=== PATIENT | female | born 1985 | race Caucasian/White ===

== ENCOUNTER 2017-02-24 00:06 | Inpatient (IN) ==
[2017-02-24] MEDS ORDERED: IOPAMIDOL 100 ML BOTTLE IV ONE (00:07)
[2017-02-24] MEDS ORDERED: ACETAMINOPHEN 325 MG TABLET PO PRN ×3 (01:02→04:08)
[2017-02-24] MEDS ORDERED: NITROFURANTOIN SR 100 MG CAPSULE PO ONE (01:02)
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
[2017-02-24 01:54] LABS: Basophils # (Auto) 0 K/mcL (0.0-0.3); Basophils % (Auto) 0.1 % (0.0-2.0); Eosinophils # (Auto) 0.1 K/mcL (0.0-0.7); Eosinophils % (Auto) 0.6 % (0.0-7.0); Granulocytes % (Auto) 79.6 % (38.0-78.0); Lymphocytes # (Auto) 1.2 K/mcL (1.5-4.8); Lymphocytes % (Auto) 10.7 % (15.5-49.0); Mean Corpuscular HGB Conc 33.9 g/dL (31.0-36.0); Mean Corpuscular Hemoglobin 34.3 pg (26.0-34.0); Monocytes # (Auto) 1.1 K/mcL (0.1-0.9); Platelet Count 209 K/mcL (140-440); RBC 3.83 M/mcL (4.00-5.20)
[2017-02-24 02:17] LABS: ALT/SGPT 22 U/l (0-40); Albumin 3.4 gm/dL (3.2-5.2); Albumin/Globulin Ratio 1.3 (1.0-2.3); Alkaline Phosphatase 93 U/L (39-117); Blood Urea Nitrogen 6 mg/dl (6-20)
[2017-02-24] MEDS: POTASSIUM CHLORIDE 20 MEQ TABLET PO ONE ×2 (02:42)
[2017-02-24] MEDS ORDERED: POTASSIUM CHLORIDE 10 MEQ TABLET PO ONE (02:44)
[2017-02-24] MEDS ORDERED: HYDROmorphone 2 MG/ML SYRINGE IV PRN (03:12)
[2017-02-24] MEDS ORDERED: CIPROFLOXACIN 400 MG/200 ML BAG IV SCH ×2 (03:15→04:08)
[2017-02-24] MEDS ORDERED: metroNIDAZOLE 500 MG/100 ML BAG IV SCH (03:15)
--- NOTE | 2017-02-24 03:37 | Internal Med History&Physical ---
Medical - H&P: [facility] Patient information: Note initiated : 02/24/17 at 3:31 am Service Date, if different from initiated Date: [] Patient: Merline Rajan a 31 y/o F admitted on for lower abd. and low back pain. Chief Complaint: [] History of present illness: Ms. Rajan is a 31 year old female with a previous history of depression, alcohol and tobacco abuse. She presented to the emergency room last night complaining of lower abdominal discomfort for approximately 5-6 days. She is noticed increased pain after eating. She has a generally positive review of systems, answering yes to questions about fever or chills, headaches or dizziness, ear pain or blurry vision, sore throat and cough, chest pain and shortness of breath, nausea and vomiting. She says she is mostly is vomiting foamy-looking material or is just having dry heaves. She is having loose stools. She thinks she saw some blood in her stool earlier this week. She is also having dysuria and bilateral flank pain. ER evaluation was suggestive of diverticulitis with possible perforation and abscess. The patient is not a great historian, and is very fidgety during the interview. Past medical history: Alcohol use tobacco abuse concussion, possible seizure, posttraumatic, 08/2015 depresssion, anxiety, hx suicidal ideation R shoulder dislocation "21 surgeries: hips, back, knees " Medications: BuSpar 10 mg daily XL gel 2 tabs daily Hydroxyzine 25 mg twice daily as needed Lorazepam 1 mg 3 times daily as needed Sertraline 50 mg p.o. twice daily next line trazodone 100 mg p.o. nightly Allergies: PCN, benedryl, shellfish Family history: Patient reports strong family history of numerous cancers, as well as COPD. Social history: The patient says she has been smoking since the age of 12 currently about a half pack per day. She drinks between 1 and 5 alcohol-containing drinks per day , usually vodka and cranberry juice. She smokes marijuana occasionally. She works 6 days a week at [employer]. She lives alone. She reports she does not have children and does not have family in the area. She would like her friends, Nichelle Hebert, to act as her POA. Phone number . Medical - H&P: Meds Home Medications Medication Instructions Recorded Confirmed Type Novelty-Gel 2 tab PO DAILY 02/24/17 02/24/17 History LORazepam [Ativan] 1 mg PO TIDP PRN 02/24/17 02/24/17 History Sertraline [Zoloft] 50 mg PO BID 02/24/17 02/24/17 History busPIRone [Buspar] 10 mg PO DAILY 02/24/17 02/24/17 History hydrOXYzine [Atarax] 25 mg PO BIDP PRN 02/24/17 02/24/17 History traZODone HCL [Trazodone HCl] 100 mg PO HS 02/24/17 02/24/17 History Allergies Allergy/AdvReac Type Severity Reaction Status Date / Time Penicillins Allergy Intermediate Unknown Verified 08/17/16 21:25 diphenhydramine Allergy Unknown Verified 08/17/16 21:25 [From Benadryl] shellfish derived Allergy Unknown Verified 08/17/16 21:25 Medical - H&P: Exam - Constitutional Vitals: Temp Pulse Resp BP Pulse Ox 99.3 F H 99 H 16 127/97 97 02/24/17 00:07 02/24/17 00:07 02/24/17 00:07 02/24/17 00:07 02/24/17 00:07 On exam, she is awake, but very fidgety, constantly rubbing her nose and scratching her head. Head: Normocephalic, atraumatic. Ears: TMs and canals are clear. Eyes: Pupils are fairly pinpoint, EOMI, anicteric. Pharynx: Is dry. Teeth are in fair condition. Neck: Is supple, without obvious lymphadenopathy, JVD, thyromegaly, bruits. Cardiac exam shows regular rate and rhythm with normal S1 and S2 without murmurs , rubs, gallops. Lungs are clear to auscultation. No rales, rhonchi, wheezes are noted. Abdomen: Is fairly soft, but with marked tenderness particularly in the left lower quadrant area. There is some guarding but no significant rebound. Bowel sounds are active. Extremities show no cyanosis, clubbing, edema. Neurologic exam: The patient is awake and alert, but has an unusual affect. She does smell a bit like alcohol. Motor exam is grossly nonfocal Medical - H&P: Reslt - Labs CBC & Chem 7: 02/24/17 04:34 02/24/17 01:15 Labs: Short CBC 02/24/17 Range/Units 01:15 WBC 11.7 H (4.5-11.0) K/mcL Hgb 13.1 (12.0-15.0) g/dL Hct 38.7 (36.0-48.0) % Plt Count 209 (140-440) K/mcL BMP 02/24/17 01:15 Sodium 142 Potassium 3.2 L Chloride 102 Carbon Dioxide 25 BUN 6 Creatinine 0.5 L Glucose 97 Calcium 8.3 L Liver Function 02/24/17 Range/Units 01:15 Total Bilirubin 0.2 (0.0-1.0) mg/dL AST 44 H (0-37) U/l ALT 22 (0-40) U/l Alkaline Phosphatase 93 (39-117) U/L Albumin 3.4 (3.2-5.2) gm/dL HCG neg. CT abd./pelvis: reportedly perforated diverticulitis, formal report pending. Medical - H&P: A/P (1) History of alcohol abuse Current visit: Yes Status: Acute (2) Tobacco abuse Current visit: Yes Status: Acute (3) Diverticulitis of intestine with perforation and abscess Current visit: Yes Status: Acute - Narrative A/P Narrative: 1. GI/ID -Divertriculitis, perforated with non-acute abdomen. Admit for IV antibiotics, IVF's -surgical consult -NPO except ice chips and meds 2.Hx tobacco abuse-offered NicoDerm patch. 3. Hx alcohol abuse It sounds like the patient drinks quite regularly. We will place her on a CIWA protocol as she may well develop alcohol withdrawal over the next couple of days. 4.Code: full. She has a girlfriend she would like to act as POA, see number under social history above. 5. DVT proph: heparin SQ. Today's visit took approximately 55 minutes, to review the case with the ER MD, review test results, interview and examine her, touch base with surgery, and write orders.
[2017-02-24] MEDS ORDERED: POTASSIUM CHLORIDE IV SCH (04:08)
[2017-02-24] MEDS ORDERED: NALOXONE HCL 0.4 MG/ML VIAL IV PRN (04:08)
[2017-02-24] MEDS ORDERED: DEXTROSE 5% IV SCH (04:08)
[2017-02-24] MEDS ORDERED: MAGNESIUM HYDROXIDE 30 ML ORAL.SUSP PO PRN (04:08)
[2017-02-24] MEDS ORDERED: ONDANSETRON 4 MG/2 ML VIAL IV PRN (04:08)
[2017-02-24] MEDS ORDERED: DOCUSATE SODIUM 100 MG CAPSULE PO PRN (04:08)
[2017-02-24] MEDS ORDERED: [UNRECOGNIZED DRUG - OTHER] IV SCH (04:08)
[2017-02-24] MEDS ORDERED: metroNIDAZOLE 500 MG/100 ML BAG IV ONE (04:30)
[2017-02-24] MEDS: metroNIDAZOLE 500 MG/100 ML BAG IV SCH ×3 (05:00→18:03)
[2017-02-24 05:12] LABS: Basophils # (Auto) 0 K/mcL (0.0-0.3); Basophils % (Auto) 0.2 % (0.0-2.0); Eosinophils # (Auto) 0 K/mcL (0.0-0.7); Eosinophils % (Auto) 0.4 % (0.0-7.0); Granulocytes % (Auto) 76.3 % (38.0-78.0); Lymphocytes # (Auto) 1.7 K/mcL (1.5-4.8); Lymphocytes % (Auto) 15.3 % (15.5-49.0); Mean Cell Volume 102.5 fL (80.0-100.0); Mean Corpuscular HGB Conc 33.5 g/dL (31.0-36.0); Mean Corpuscular Hemoglobin 34.4 pg (26.0-34.0); Monocytes # (Auto) 0.9 K/mcL (0.1-0.9); Monocytes % (Auto) 7.8 % (1.0-12.0); Platelet Count 193 K/mcL (140-440); RBC 3.58 M/mcL (4.00-5.20)
[2017-02-24] MEDS: 0.9 % SODIUM CHLORIDE 10 ML SYRINGE IV SCH ×3 (05:34→15:31)
[2017-02-24] MEDS: DEXTROSE 5%-1/2NS W/30MEQ KCL 1,000 ML IV SCH ×2 (08:44→16:31)
[2017-02-24] MEDS: FOLIC ACID 1 MG TABLET PO SCH (08:44)
[2017-02-24] MEDS: MULTIVIT,THER IRON,CA,FA & MIN 1 TABLET PO SCH (08:44)
[2017-02-24] MEDS: THIAMINE 100 MG/ML VIAL IM SCH (08:45)
[2017-02-24] MEDS: HEPARIN 5,000 UNIT/ML VIAL SQ SCH ×2 (08:46→19:54)
[2017-02-24] MEDS: LORazepam 2 MG/ML VIAL IV PRN ×2 (08:47→11:37)
[2017-02-24 09:51] LABS: Ionized Calcium 1.08 mmol/L (1.16-1.32)
[2017-02-24 10:07] LABS: Blood Urea Nitrogen 5 mg/dl (6-20)
--- NOTE | 2017-02-24 10:53 | Cat Scan Report ---
CLINICAL INFORMATION: Left lower quadrant pain COMPARISON: [address] TECHNIQUE: Following enteric contrast, 80 cc of Isovue-300 were injected intravenously, and 60 seconds later, 0.625 mm helical slices were obtained from the mid heart through the subtrochanteric regions. Following reconstruction, 2.5 mm sagittal, coronal and axial reformatted images were processed and reviewed at bone, lung and soft tissue windows. Five minutes later, 0.625 mm helical slices were obtained from the mid heart through the kidneys and viewed at soft tissue windows.The exam was performed using radiation dose optimization techniques including, but not limited to, automated exposure control, adjustment of the mA and/or kV according to patient size and use of iterative reconstruction technique. FINDINGS: Lung bases show no abnormality - no effusion. The visualized heart is normal. Images should the abdomen show moderate fatty change within the liver, but no focal lesion. The gallbladder and bile ducts, both kidneys, adrenal glands, spleen, pancreas and aorta including aortic branches are normal in size configuration and attenuation without focal lesion. Images through the pelvis show urinary bladder to be unremarkable. Anteflexed uterus is normal in size spanning 7 x 4 cm. The ovaries are normal. Moderate diverticulitis involves the proximal 7 cm the sigmoid colon. In this region, there is moderate colonic wall thickening and inflammation in the pericolonic fat. There is a 10 cm region of air in the posterior perisigmoid fat with associated fluid. This is either represents a early abscess or a contained perforation. The remaining colon small bowel and stomach are normal. Bone windows show no abnormality IMPRESSION: Moderate diverticulitis involving the proximal 7 cm of the sigmoid colon. There is a 10 cm region of air in the posterior perisigmoid fat with associated fluid representing either a developing abscess or a contained perforation. Interpreted and Authenticated by: Peterson Reid 02/24/17
[2017-02-24] MEDS: CIPROFLOXACIN 400 MG/200 ML BAG IV SCH ×2 (13:19→20:02)
[2017-02-24] MEDS ORDERED: NICOTINE 21 MG PATCH TOPICAL ONE (15:13)
--- NOTE | 2017-02-24 16:16 | General Surgery Consult Note ---
History of Present Illness Patient information: Note initiated : 02/24/17 at 4:14 pm Service Date, if different from initiated Date: [] Patient: Merline Rajan 31 y/o F admitted on 02/24/17 for Lower Abd/Low Back Pain/Diverticulitis. Chief Complaint: [] Reason for consult: other History of present illness: 31-year-old female with greater than a 1 week history of sharp pain in her posterior lateral flank and left lower quadrant. She also has had nausea with vomiting and fever.. She had frequent episodes of diarrhea with up to 10 bowel movements per day. She denies rectal bleeding. She was seen in the emergency room was noted that she has proximal sigmoid diverticulitis with probable retroperitoneal perforation and developing psoas phlegmon or abscess.. She is admitted for treatment and an attempt will be made to try to treat her nonoperatively. A follow-up CT will be done on to evaluate her progress. The patient has not had similar pain in the past.. Review of Systems - Constitutional chills, fever(s), headache(s), weakness - EENT Nose, mouth and throat: headache(s), no vertigo - Cardiovascular no chest pain at rest, no palpatations, no syncope - Respiratory no dyspnea on exertion (is a strong), no wheezing - Gastrointestinal as per HPI, abdominal pain, bloating (Once again the bed), diarrhea (he didn't have), nausea, vomiting - Genitourinary Genitourinary: no urinary incontinence, no urinary urgency - Musculoskeletal abnormal gait, arthralgias, back pain, joint swelling, muscle weakness, myalgias , stiffness - Integumentary no changing lesions, no new lesions, no pruritus, no rash - Neurological abnormal gait, convulsions, headache(s), weakness - Psychiatric anxiety, depression, panic attacks - Endocrine fatigue - Hematologic/Lymphatic no easy bleeding, no easy bruising, no lymphadenopathy - Allergic/Immunologic tongue swelling, no throat swelling, no uticaria, no wheezing, no lip swelling Past History Past medical history: chronic anxiety with depression History of traumatic concussion History of chronic alcoholism History of chronic dislocation right shoulder Past surgical history: 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 Past family history: mother at age 43 due to suicide Father age 46 due to coronary artery disease Past social history: lives alone Employed Daily alcohol use Daily tobacco use Frequent marijuana use Single Medications and Allergies Home Medications Medication Instructions Recorded Confirmed Type [place]-Gel 2 tab PO DAILY 02/24/17 02/24/17 History LORazepam [Ativan] 1 mg PO TIDP PRN 02/24/17 02/24/17 History Sertraline [Zoloft] 50 mg PO BID 02/24/17 02/24/17 History busPIRone [Buspar] 10 mg PO DAILY 02/24/17 02/24/17 History hydrOXYzine [Atarax] 25 mg PO BIDP PRN 02/24/17 02/24/17 History traZODone HCL [Trazodone HCl] 100 mg PO HS 02/24/17 02/24/17 History Allergies Allergy/AdvReac Type Severity Reaction Status Date / Time Penicillins Allergy Intermediate Unknown Verified 08/17/16 21:25 diphenhydramine Allergy Unknown Verified 08/17/16 21:25 [From Benadryl] shellfish derived Allergy Unknown Verified 08/17/16 21:25 Exam Temp Pulse Resp BP Pulse Ox 97.5 F 91 H 20 119/80 93 02/24/17 11:56 02/24/17 11:56 02/24/17 11:56 02/24/17 11:56 02/24/17 11:56 - General physical appearance well developed, well nourished, moderate distress, other (severe anxiety and irritability) - Eyes PERRL, normal ocular movement - ENT normal pinna, normal nares, normal mucosa, no hearing loss, no congestion - Head Head exam IM: Present: atraumatic, normal inspection, normocephalic - Neck no masses, no bruits, trachea midline, no lymphadectomy, no venous distension - Cardiovascular Cardiovascular exam IM: Present: normal rate and rhythm, RRR, +S1, +S2. Absent : JVD - Respiratory normal expansion, normal respiratory effort, clear to percussion, clear to auscultation - Abdomen Abdomen: Present: soft, tender (mild tenderness left lower quadrant extending into left flank and CVA region), bowel sounds, distended Hernia: Present: none - Genitourinary Present: normal external genitalia - Integumentary Present: no rash, no growths, no abnormal pigmentation - Neurologic Present: normal coordination, normal sensation, other (hyperreflexia right lower extremity with clonus; resting tremor right lower extremity) - Musculoskeletal Present: normal posture, other (spasticity right lower extremity with operative changes right knee.) - Psychiatric Present: oriented to time, oriented to person, oriented to place, speech is normal, memory intact, other (severe anxiety and obvious depression) Results - Labs 02/24/17 04:34 02/24/17 09:06 Abnormal lab results 02/24/17 02/24/17 02/24/17 Range/Units 01:15 01:15 04:34 WBC 11.7 H 11.3 H (4.5-11.0) K/mcL RBC 3.83 L 3.58 L (4.00-5.20) M/mcL MCV 101.0 H 102.5 H (80.0-100.0) fL MCH 34.3 H 34.4 H (26.0-34.0) pg Gran % 79.6 H (38.0-78.0) % Lymph % (Auto) 10.7 L 15.3 L (15.5-49.0) % Gran # 9.3 H 8.7 H (1.8-8.0) K/mcL Lymph # (Auto) 1.2 L (1.5-4.8) K/mcL [place] # (Auto) 1.1 H (0.1-0.9) K/mcL POC Potassium 3.2 L (3.3-5.1) mmol/L Potassium 3.2 L (3.3-5.1) mmol/L POC BUN 3 L (6-20) mg/dl BUN (6-20) mg/dl Creatinine 0.5 L (0.6-1.1) mg/dl Calcium 8.3 L (8.6-10.4) mg/dl POC WB Ioniz Calcium 1.10 L (1.16-1.32) mmol/L Ionized Calcium Alexis (1.16-1.32) mmol/L AST 44 H (0-37) U/l 02/24/17 Range/Units 09:06 WBC (4.5-11.0) K/mcL RBC (4.00-5.20) M/mcL MCV (80.0-100.0) fL MCH (26.0-34.0) pg Gran % (38.0-78.0) % Lymph % (Auto) (15.5-49.0) % Gran # (1.8-8.0) K/mcL Lymph # (Auto) (1.5-4.8) K/mcL [place] # (Auto) (0.1-0.9) K/mcL POC Potassium (3.3-5.1) mmol/L Potassium (3.3-5.1) mmol/L POC BUN (6-20) mg/dl BUN 5 L (6-20) mg/dl Creatinine 0.5 L (0.6-1.1) mg/dl Calcium (8.6-10.4) mg/dl POC WB Ioniz Calcium (1.16-1.32) mmol/L Ionized Calcium Alexis 1.08 L (1.16-1.32) mmol/L AST (0-37) U/l Diabetes panel 02/24/17 02/24/17 Range/Units 01:15 09:06 Sodium 142 137 (133-145) mmol/L Potassium 3.2 L 3.6 (3.3-5.1) mmol/L Chloride 102 100 (96-108) mmol/L Carbon Dioxide 25 23 (22-30) mmol/L BUN 6 5 L (6-20) mg/dl Creatinine 0.5 L 0.5 L (0.6-1.1) mg/dl Glucose 97 91 (70-105) mg/dL Calcium 8.3 L (8.6-10.4) mg/dl AST 44 H (0-37) U/l ALT 22 (0-40) U/l Alkaline Phosphatase 93 (39-117) U/L Total Protein 6.1 (5.9-8.4) gm/dL Albumin 3.4 (3.2-5.2) gm/dL Calcium panel 02/24/17 02/24/17 Range/Units 01:15 09:06 Calcium 8.3 L (8.6-10.4) mg/dl Ionized Calcium Alexis 1.08 L (1.16-1.32) mmol/L Albumin 3.4 (3.2-5.2) gm/dL Pituitary panel 02/24/17 02/24/17 Range/Units 01:15 09:06 Sodium 142 137 (133-145) mmol/L Potassium 3.2 L 3.6 (3.3-5.1) mmol/L Chloride 102 100 (96-108) mmol/L Carbon Dioxide 25 23 (22-30) mmol/L BUN 6 5 L (6-20) mg/dl Creatinine 0.5 L 0.5 L (0.6-1.1) mg/dl Glucose 97 91 (70-105) mg/dL Calcium 8.3 L (8.6-10.4) mg/dl Adrenal panel 02/24/17 02/24/17 Range/Units 01:15 09:06 Sodium 142 137 (133-145) mmol/L Potassium 3.2 L 3.6 (3.3-5.1) mmol/L Chloride 102 100 (96-108) mmol/L Carbon Dioxide 25 23 (22-30) mmol/L BUN 6 5 L (6-20) mg/dl Creatinine 0.5 L 0.5 L (0.6-1.1) mg/dl Glucose 97 91 (70-105) mg/dL Calcium 8.3 L (8.6-10.4) mg/dl Total Bilirubin 0.2 (0.0-1.0) mg/dL AST 44 H (0-37) U/l ALT 22 (0-40) U/l Alkaline Phosphatase 93 (39-117) U/L Total Protein 6.1 (5.9-8.4) gm/dL Albumin 3.4 (3.2-5.2) gm/dL All other labs normal. Assessment and Plan (1) Diverticulitis large intestine continue antibiotic treatment Follow-up CT with IV contrast on Status: Acute Qualifiers: Diverticulitis complication: with perforation and abscess (2) Psoas abscess, left follow-up CT on Status: Acute (3) Anxiety with depression resume psychotropic medications with sips of water Add Ativan IV every 6 hours for severe anxiety Status: Acute (4) Epileptic seizure Status: Acute (5) Anxiety associated with depression Status: Acute (6) Chronic alcoholism Status: Acute (7) Personal history of seizure disorder Status: Acute
[2017-02-24] MEDS: SERTRALINE 50 MG TABLET PO SCH (19:54)
[2017-02-24] MEDS: LORazepam 1 MG TABLET PO SCH (19:54)
[2017-02-24] MEDS: traZODone HCL 50 MG TABLET PO SCH (19:54)
[2017-02-25] MEDS: metroNIDAZOLE 500 MG/100 ML BAG IV SCH ×4 (00:17→17:54)
[2017-02-25] MEDS: 0.9 % SODIUM CHLORIDE 10 ML SYRINGE IV SCH ×6 (00:19→22:11)
[2017-02-25] MEDS: DEXTROSE 5%-1/2NS W/30MEQ KCL 1,000 ML IV SCH ×3 (00:20→06:50)
[2017-02-25 07:07] LABS: Basophils # (Auto) 0 K/mcL (0.0-0.3); Basophils % (Auto) 0.3 % (0.0-2.0); Eosinophils # (Auto) 0.1 K/mcL (0.0-0.7); Eosinophils % (Auto) 0.6 % (0.0-7.0); Granulocytes % (Auto) 78.6 % (38.0-78.0); Lymphocytes % (Auto) 10.1 % (15.5-49.0); Mean Cell Volume 100.8 fL (80.0-100.0); Mean Corpuscular HGB Conc 34.4 g/dL (31.0-36.0); Mean Corpuscular Hemoglobin 34.6 pg (26.0-34.0); Monocytes % (Auto) 10.4 % (1.0-12.0); Platelet Count 190 K/mcL (140-440); RBC 3.72 M/mcL (4.00-5.20); Red Cell Distribution Width 13.5 % (11.5-14.5)
[2017-02-25 07:26] LABS: ALT/SGPT 17 U/l (0-40); Albumin 2.8 gm/dL (3.2-5.2); Albumin/Globulin Ratio 0.9 (1.0-2.3); Alkaline Phosphatase 116 U/L (39-117); Bilirubin,Direct < 0.2 mg/dL (0.0-0.3); Blood Urea Nitrogen 2 mg/dl (6-20); Gamma Glutamyl Transpeptidase 247 U/L (5-36); Magnesium 1.4 mg/dL (1.6-2.5); Uric Acid 3.2 mg/dL (2.5-8.0)
[2017-02-25] MEDS ORDERED: MAGNESIUM SULFATE 32.48 MEQ in DEXTROSE 5% IN WATER 100 ML IV ONE (08:01)
[2017-02-25] MEDS ORDERED: DEXTROSE 5%-LR 1,000 ML IV SCH (08:15)
[2017-02-25] MEDS: SERTRALINE 50 MG TABLET PO SCH ×2 (09:15→20:50)
[2017-02-25] MEDS: MULTIVIT,THER IRON,CA,FA & MIN 1 TABLET PO SCH (09:15)
[2017-02-25] MEDS: FOLIC ACID 1 MG TABLET PO SCH (09:15)
[2017-02-25] MEDS: HEPARIN 5,000 UNIT/ML VIAL SQ SCH ×2 (09:16→20:50)
[2017-02-25] MEDS: LORazepam 1 MG TABLET PO SCH ×3 (09:16→20:50)
[2017-02-25] MEDS: THIAMINE 100 MG/ML VIAL IM SCH (09:17)
[2017-02-25] MEDS: NICOTINE 21 MG PATCH TOPICAL SCH (09:18)
[2017-02-25] MEDS: CIPROFLOXACIN 400 MG/200 ML BAG IV SCH ×2 (11:48→20:55)
--- NOTE | 2017-02-25 13:50 | General Surgery Progress Note ---
Subjective Patient reports: feels better, still having pain, flatus Narrative: Note initiated : 02/25/17 at 1:48 pm Service Date, if different from initiated Date: [] Patient: Merline Rajan 31 y/o F admitted on 02/24/17 for Lower Abd/Low Back Pain/Diverticulitis. Chief Complaint: [Patient states that she feels better. She still has left lower quadrant and left flank and CVA pain. She denies nausea. Her peak. temperature was 99.6 .she is passing flatus but has not had a bowel movement. No nausea or vomiting.] Objective Temp Pulse Resp BP Pulse Ox 97.3 F 88 16 126/88 91 02/25/17 12:00 02/25/17 05:05 02/25/17 12:00 02/25/17 12:00 02/25/17 12:00 - Additional Data Intake & Output - Last 24 hours: Intake & Output 02/23/17 02/24/17 02/25/17 02/26/17 05:59 05:59 05:59 05:59 Intake Total 200 / 200 2220 / 2220 300 / 300 Output Total 775 / 775 1800 / 1800 Balance 200 / 200 1445 / 1445 -1500 / -1500 Weight 127 lb 128 lb 8 oz 128 lb 8 oz - General physical appearance no distress - Eyes PERRL - ENT no congestion - Neck no venous distension - Respiratory normal expansion, normal respiratory effort, clear to auscultation - Cardiovascular Cardiovascular exam: Present: normal rate and rhythm, RRR, +S1, +S2. Absent: JVD, tachycardia - Abdomen tender (Tenderness in left lower quadrant and left CVA region; good active bowel sounds; less distention than on yesterday) - Integumentary no rash - Neurologic normal coordination, normal sensation, other - Musculoskeletal normal gait, normal posture - Psychiatric oriented to time, oriented to person, oriented to place, speech is normal, memory intact, other (Severe anxiety that I experience yesterday is not apparent today) - Labs 02/25/17 05:45 02/25/17 05:45 Diabetes panel 02/25/17 Range/Units 05:45 Sodium 134 (133-145) mmol/L Potassium 4.2 (3.3-5.1) mmol/L Chloride 101 (96-108) mmol/L Carbon Dioxide 22 (22-30) mmol/L BUN 2 L (6-20) mg/dl Creatinine 0.6 (0.6-1.1) mg/dl Glucose 111 H (70-105) mg/dL Calcium 8.1 L (8.6-10.4) mg/dl AST 31 (0-37) U/l ALT 17 (0-40) U/l Alkaline Phosphatase 116 (39-117) U/L Total Protein 5.8 L (5.9-8.4) gm/dL Albumin 2.8 L (3.2-5.2) gm/dL Triglycerides 52 (<150) mg/dl Calcium panel 02/25/17 Range/Units 05:45 Calcium 8.1 L (8.6-10.4) mg/dl Phosphorus 2.7 (2.7-4.5) mg/dL Albumin 2.8 L (3.2-5.2) gm/dL Pituitary panel 02/25/17 Range/Units 05:45 Sodium 134 (133-145) mmol/L Potassium 4.2 (3.3-5.1) mmol/L Chloride 101 (96-108) mmol/L Carbon Dioxide 22 (22-30) mmol/L BUN 2 L (6-20) mg/dl Creatinine 0.6 (0.6-1.1) mg/dl Glucose 111 H (70-105) mg/dL Calcium 8.1 L (8.6-10.4) mg/dl Adrenal panel 02/25/17 Range/Units 05:45 Sodium 134 (133-145) mmol/L Potassium 4.2 (3.3-5.1) mmol/L Chloride 101 (96-108) mmol/L Carbon Dioxide 22 (22-30) mmol/L BUN 2 L (6-20) mg/dl Creatinine 0.6 (0.6-1.1) mg/dl Glucose 111 H (70-105) mg/dL Calcium 8.1 L (8.6-10.4) mg/dl Total Bilirubin 0.6 (0.0-1.0) mg/dL AST 31 (0-37) U/l ALT 17 (0-40) U/l Alkaline Phosphatase 116 (39-117) U/L Total Protein 5.8 L (5.9-8.4) gm/dL Albumin 2.8 L (3.2-5.2) gm/dL Assessment and Plan (1) Diverticulitis large intestine Status: Acute Assessment and plan: Patient is clinically improved Current Visit: Yes (2) Psoas abscess, left Status: Acute Current Visit: Yes (3) Anxiety with depression Status: Acute Current Visit: Yes (4) Epileptic seizure Status: Acute Current Visit: No (5) Anxiety associated with depression Status: Acute Current Visit: Yes (6) Chronic alcoholism Status: Acute Current Visit: Yes (7) Personal history of seizure disorder Status: Acute Current Visit: Yes - Time Spent With Patient Total time spent is greater than 50% in coordination of care (as documented) at patient's floor/unit and/or counseling patient:
[2017-02-25] MEDS ORDERED: guaiFENesin/CODEINE 10 ML UDC PO PRN (13:59)
--- NOTE | 2017-02-25 14:48 | Internal Med Progress Note ---
Medical - PN: Subj Patient information: Note initiated : 02/25/17 at 2:43 pm Service Date, if different from initiated Date: [] Patient: Merline Rajan 31 y/o F admitted on 02/24/17 for Lower Abd/Low Back Pain/Diverticulitis. Chief Complaint: [] Interval history: History of present illness: Ms. Rajan is a 31 year old female with a previous history of depression, alcohol and tobacco abuse. She presented to the emergency room last night complaining of lower abdominal discomfort for approximately 5-6 days. She is noticed increased pain after eating. She has a generally positive review of systems, answering yes to questions about fever or chills, headaches or dizziness, ear pain or blurry vision, sore throat and cough, chest pain and shortness of breath, nausea and vomiting. She says she is mostly is vomiting foamy-looking material or is just having dry heaves. She is having loose stools. She thinks she saw some blood in her stool earlier this week. She is also having dysuria and bilateral flank pain. ER evaluation was suggestive of diverticulitis with possible perforation and abscess. The patient is not a great historian, and is very fidgety during the interview. February 25: She is sleeping well with scheduled Ativan. She continues to have abdominal pain that is controlled with morphine. She is requesting ice chips. Passing gas. Feeling a little tremulous ROS: no fever or SOB Gen: Thin, NAD, sleeping comfortably. Awakens easily CV: RRR Resp: CTAB Abd: soft, decreasing distention, mild LLQ tenderness. Active BT Ext: no c/c/e NRO: A/Ox 3 - Constitutional Vitals: Vital Signs Temp Pulse Resp BP Pulse Ox 97.3 F 88 16 126/88 91 02/25/17 12:00 02/25/17 05:05 02/25/17 12:00 02/25/17 12:00 02/25/17 12:00 Period Temp Pulse Resp BP Sys/Hernandez Pulse Ox Last 24 Hr 97.0 F-99.1 F 88-105 14-16 112-128/73-90 91-98 Intake and Output 02/25/17 02/25/17 02/25/17 05:59 13:59 21:59 Intake Total 1280 / 1280 300 / 300 Output Total 150 / 150 1800 / 1800 600 / 600 Balance 1130 / 1130 -1500 / -1500 -600 / -600 Weight 128 lb 8 oz Patient Weight 02/26/17 05:59 Weight 128 lb 8 oz Intake & Output: Intake & Output 02/25/17 02/25/17 02/25/17 05:59 13:59 21:59 Intake Total 1280 / 1280 300 / 300 Output Total 150 / 150 1800 / 1800 600 / 600 Balance 1130 / 1130 -1500 / -1500 -600 / -600 Weight 128 lb 8 oz Intake: IV 1100 / 1100 300 / 300 Dextrose 5%-1/2Ns W/30Meq KCl 1 1000 / 1000 ,000 ml @ 125 mls/hr IV Q8H [facility] Rx#:[id number] Oral 180 / 180 Output: Void Amount 150 / 150 1800 / 1800 600 / 600 Medical - PN: Obj Da - Labs CBC & Chem 7: 02/25/17 05:45 02/25/17 05:45 Labs: Abnormal Lab Results 02/25/17 02/25/17 02/24/17 05:45 05:45 09:06 WBC RBC 3.72 L MCV 100.8 H MCH 34.6 H Gran % 78.6 H Lymph % (Auto) 10.1 L Gran # Lymph # (Auto) 1.0 L [place] # (Auto) 1.0 H POC Potassium Potassium POC BUN BUN 2 L 5 L Creatinine 0.5 L Glucose 111 H Calcium 8.1 L POC WB Ioniz Calcium Ionized Calcium Alexis 1.08 L Magnesium 1.4 L GGT 247 H AST Total Protein 5.8 L Albumin 2.8 L Albumin/Globulin Ratio 0.9 L 02/24/17 02/24/17 02/24/17 04:34 01:15 01:15 WBC 11.3 H 11.7 H RBC 3.58 L 3.83 L MCV 102.5 H 101.0 H MCH 34.4 H 34.3 H Gran % 79.6 H Lymph % (Auto) 15.3 L 10.7 L Gran # 8.7 H 9.3 H Lymph # (Auto) 1.2 L [place] # (Auto) 1.1 H POC Potassium 3.2 L Potassium 3.2 L POC BUN 3 L BUN Creatinine 0.5 L Glucose Calcium 8.3 L POC WB Ioniz Calcium 1.10 L Ionized Calcium Alexis Magnesium GGT AST 44 H Total Protein Albumin Albumin/Globulin Ratio Meds: Medications Acetaminophen (Tylenol) 650 mg PO Q6HP PRN PRN Reason: PAIN/FEVER > 101 Docusate Sodium (Colace) 100 mg PO BID PRN PRN Reason: Constipation Folic Acid (Folic Acid) 1 mg PO DAILY [facility] Last Admin: 02/25/17 09:15 Dose: 1 mg Guaifenesin/Codeine Phosphate (Robitussin Ac) 5 ml PO Q4HP PRN PRN Reason: Cough Heparin Sodium (Porcine) (Heparin) 5,000 unit SQ Q12 [facility] Last Admin: 02/25/17 09:16 Dose: 5,000 unit Metronidazole (Flagyl) 500 mg in 100 mls @ 100 mls/hr IV Q6H [facility] Last Admin: 02/25/17 13:47 Dose: 100 mls/hr Ciprofloxacin (Cipro) 400 mg in 200 mls @ 200 mls/hr IV Q12H [facility] Last Admin: 02/25/17 11:48 Dose: 200 mls/hr Dextrose/Lactated Ringer's (Dextrose 5%-Lactated Ringers) 1,000 mls @ 84 mls/ hr IV .[id number] [facility] Last Admin: 02/25/17 09:12 Dose: 84 mls/hr Iron Carb/Multivit/Maxillofacial Prosthetics Dentist/Folic Acid (Multivitamin W/Minerals) 1 tab PO DAILY [facility] Last Admin: 02/25/17 09:15 Dose: 1 tab Loratadine (Claritin) 10 mg PO DAILY [facility] Lorazepam (Ativan) 0 mg IV Q4HP PRN; Protocol PRN Reason: Alcohol Withdrawal Last Admin: 02/24/17 11:37 Dose: 1 mg Lorazepam (Ativan) 1 mg PO TID [facility] Last Admin: 02/25/17 09:16 Dose: 1 mg Magnesium Hydroxide (Milk Of Magnesia) 30 ml PO DAILYP PRN PRN Reason: Constipation Morphine Sulfate (Morphine) 4 mg IV Q4HP PRN PRN Reason: PAIN LEVEL > 6 Last Admin: 02/24/17 19:30 Dose: 4 mg Naloxone HCl (Narcan) 0.1 mg IV Q2MIN PRN PRN Reason: Opiate Reversal Nicotine (Nicoderm) 21 mg TOPICAL DAILY [facility] Last Admin: 02/25/17 09:18 Dose: 21 mg Ondansetron HCl (Zofran) 4 mg IV Q6HP PRN PRN Reason: Nausea And Vomiting Last Admin: 02/24/17 11:38 Dose: 4 mg Sertraline HCl (Zoloft) 50 mg PO BID [facility] Last Admin: 02/25/17 09:15 Dose: 50 mg Sodium Chloride (Saline Flush) 10 ml IV Q8 [facility] Last Admin: 02/25/17 06:02 Dose: Not Given Thiamine HCl (Vitamin B1) 100 mg IM DAILY [facility] Last Admin: 02/25/17 09:17 Dose: 100 mg Trazodone HCl (Desyrel) 100 mg PO HS [facility] Last Admin: 02/24/17 19:54 Dose: 100 mg Medical - PN: A/P - Time Spent With Patient Total time spent is greater than 50% in coordination of care (as documented) at patient's floor/unit and/or counseling patient: 25 - 35 minutes - Narrative A/P Narrative: 1. GI/ID -Diverticulitis, perforated with psoas phlegmon -Appreciate surgery input. Plan to continue IV cipro and Flagyl with repeat CT on to assess whether it has coalesced into a drainable abscess, preferably by IR. If she needed surgery, she would need colostomy. There is concern that, given her psychiatric history, she would not cope well with that. -NPO except ice chips and meds. PRN IV morphine for pain 2.Hx tobacco abuse-offered NicoDerm patch. 3. Hx alcohol abuse It sounds like the patient drinks quite regularly. Cont CIWA 4.Code: full. She has a girlfriend she would like to act as POA, see number under social history in H&P. 5. DVT proph: heparin SQ. 6. Hyponatremia--2/2 alcohol potomania and hypotonic fluids. Change to D5NS. Recheck Na this afternoon. 7. Depression/anxiety: cont home TID Ativan Medical - PN: Qual - Stroke Symptom Onset Unknown: No - VTE Deep Vein Thrombosis/Pulmonary Embolism Present on Admission: No
[2017-02-25] MEDS: DEXTROSE 5%-NS 1,000 ML IV SCH (16:57)
[2017-02-25] MEDS: oxyCODONE/APAP 10/325MG TABLET PO PRN ×2 (17:54→22:14)
[2017-02-25] MEDS: traZODone HCL 50 MG TABLET PO SCH (20:50)
[2017-02-26] MEDS: metroNIDAZOLE 500 MG/100 ML BAG IV SCH ×4 (00:03→17:34)
[2017-02-26] MEDS: oxyCODONE/APAP 10/325MG TABLET PO PRN ×2 (03:14→19:35)
[2017-02-26] MEDS: DEXTROSE 5%-NS 1,000 ML IV SCH ×3 (04:17→20:43)
[2017-02-26] MEDS: 0.9 % SODIUM CHLORIDE 10 ML SYRINGE IV SCH ×3 (05:28→20:15)
[2017-02-26 05:35] LABS: Basophils # (Auto) 0 K/mcL (0.0-0.3); Basophils % (Auto) 0.4 % (0.0-2.0); Eosinophils # (Auto) 0.2 K/mcL (0.0-0.7); Eosinophils % (Auto) 2.7 % (0.0-7.0); Granulocytes % (Auto) 65.4 % (38.0-78.0); Lymphocytes # (Auto) 1.3 K/mcL (1.5-4.8); Lymphocytes % (Auto) 21.4 % (15.5-49.0); Mean Cell Volume 101.7 fL (80.0-100.0); Mean Corpuscular HGB Conc 33.4 g/dL (31.0-36.0); Mean Corpuscular Hemoglobin 33.9 pg (26.0-34.0); Monocytes # (Auto) 0.6 K/mcL (0.1-0.9); Monocytes % (Auto) 10.1 % (1.0-12.0); Platelet Count 191 K/mcL (140-440); RBC 3.58 M/mcL (4.00-5.20)
[2017-02-26 05:50] LABS: ALT/SGPT 12 U/l (0-40); Albumin 2.7 gm/dL (3.2-5.2); Albumin/Globulin Ratio 0.9 (1.0-2.3); Alkaline Phosphatase 93 U/L (39-117); Bilirubin,Direct < 0.2 mg/dL (0.0-0.3); Blood Urea Nitrogen 2 mg/dl (6-20); Gamma Glutamyl Transpeptidase 215 U/L (5-36); Magnesium 2.1 mg/dL (1.6-2.5); Uric Acid 2.8 mg/dL (2.5-8.0)
[2017-02-26] MEDS: LORazepam 1 MG TABLET PO SCH ×3 (09:08→20:15)
[2017-02-26] MEDS: SERTRALINE 50 MG TABLET PO SCH ×2 (09:08→20:15)
[2017-02-26] MEDS: LORATADINE 10 MG TABLET PO SCH (09:08)
[2017-02-26] MEDS: MULTIVIT,THER IRON,CA,FA & MIN 1 TABLET PO SCH (09:08)
[2017-02-26] MEDS: FOLIC ACID 1 MG TABLET PO SCH (09:08)
[2017-02-26] MEDS: HEPARIN 5,000 UNIT/ML VIAL SQ SCH ×2 (09:08→20:42)
[2017-02-26] MEDS: THIAMINE 100 MG/ML VIAL IM SCH ×2 (09:09→09:12)
[2017-02-26] MEDS: NICOTINE 21 MG PATCH TOPICAL SCH (09:10)
[2017-02-26] MEDS: CIPROFLOXACIN 400 MG/200 ML BAG IV SCH ×2 (10:52→20:15)
--- NOTE | 2017-02-26 12:22 | Internal Med Progress Note ---
Medical - PN: Subj Patient information: Note initiated : 02/26/17 at 12:22 pm Service Date, if different from initiated Date: [] Patient: Merline Rajan 32 y/o F admitted on 02/24/17 for Lower Abd/Low Back Pain/Diverticulitis. Chief Complaint: [] Interval history: History of present illness: Ms. Rajan is a 31 year old female with a previous history of depression, alcohol and tobacco abuse. She presented to the emergency room last night complaining of lower abdominal discomfort for approximately 5-6 days. She is noticed increased pain after eating. She has a generally positive review of systems, answering yes to questions about fever or chills, headaches or dizziness, ear pain or blurry vision, sore throat and cough, chest pain and shortness of breath, nausea and vomiting. She says she is mostly is vomiting foamy-looking material or is just having dry heaves. She is having loose stools. She thinks she saw some blood in her stool earlier this week. She is also having dysuria and bilateral flank pain. ER evaluation was suggestive of diverticulitis with possible perforation and abscess. The patient is not a great historian, and is very fidgety during the interview. February 25: She is sleeping well with scheduled Ativan. She continues to have abdominal pain that is controlled with morphine. She is requesting ice chips. Passing gas. Feeling a little tremulous February 26: Today, the patient notes she is feeling better. She is having much less abdominal pain. She denies fever chills, chest pain or shortness of breath, nausea or vomiting, diarrhea or constipation. She is not really having bowel movements. She denies dysuria. - Constitutional Vitals: Vital Signs Temp Pulse Resp BP Pulse Ox 97.1 F 62 16 119/83 95 02/26/17 11:49 02/26/17 04:00 02/26/17 11:49 02/26/17 11:49 02/26/17 11:49 Period Temp Pulse Resp BP Sys/Hernandez Pulse Ox Last 24 Hr 96.0 F-98.8 F 52-69 16-20 89-133/53-92 95-99 Intake and Output 02/25/17 02/26/17 02/26/17 21:59 05:59 13:59 Intake Total 420 / 420 1320 / 1320 Output Total 1540 / 1540 Balance -1120 / -1120 1320 / 1320 Weight 128 lb 8 oz Intake & Output: Intake & Output 02/25/17 02/26/17 02/26/17 21:59 05:59 13:59 Intake Total 420 / 420 1320 / 1320 Output Total 1540 / 1540 Balance -1120 / -1120 1320 / 1320 Weight 128 lb 8 oz Intake: IV 400 / 400 1100 / 1100 Dextrose 5%-Ns IV Solution 1, 1000 / 1000 000 ml @ 100 mls/hr IV .Q10H [facility] Rx#:[id number] Oral 220 / 220 Output: Void Amount 1540 / 1540 On exam, she is sleepy, but in no acute distress. Neck is supple without obvious lymphadenopathy. Cardiac exam shows regular rate and rhythm. Lungs are clear to auscultation. Abdomen is soft. She has minimal left lower quadrant tenderness, without guarding or rebound. Bowel sounds are active. Extremities show no edema. Neurologic exam is grossly nonfocal. Medical - PN: Obj Da - Labs CBC & Chem 7: 02/26/17 04:45 02/26/17 04:45 Labs: Abnormal Lab Results 02/26/17 02/26/17 02/25/17 04:45 04:45 05:45 WBC RBC 3.58 L 3.72 L MCV 101.7 H 100.8 H MCH 34.6 H Gran % 78.6 H Lymph % (Auto) 10.1 L Gran # Lymph # (Auto) 1.3 L 1.0 L [place] # (Auto) 1.0 H POC Potassium Potassium POC BUN BUN 2 L Creatinine Glucose 115 H Calcium 7.9 L POC WB Ioniz Calcium Ionized Calcium Alexis Magnesium GGT 215 H AST Total Protein 5.6 L Albumin 2.7 L Albumin/Globulin Ratio 0.9 L 02/25/17 02/24/17 02/24/17 05:45 09:06 04:34 WBC 11.3 H RBC 3.58 L MCV 102.5 H MCH 34.4 H Gran % Lymph % (Auto) 15.3 L Gran # 8.7 H Lymph # (Auto) [place] # (Auto) POC Potassium Potassium POC BUN BUN 2 L 5 L Creatinine 0.5 L Glucose 111 H Calcium 8.1 L POC WB Ioniz Calcium Ionized Calcium Alexis 1.08 L Magnesium 1.4 L GGT 247 H AST Total Protein 5.8 L Albumin 2.8 L Albumin/Globulin Ratio 0.9 L 02/24/17 02/24/17 01:15 01:15 WBC 11.7 H RBC 3.83 L MCV 101.0 H MCH 34.3 H Gran % 79.6 H Lymph % (Auto) 10.7 L Gran # 9.3 H Lymph # (Auto) 1.2 L [place] # (Auto) 1.1 H POC Potassium 3.2 L Potassium 3.2 L POC BUN 3 L BUN Creatinine 0.5 L Glucose Calcium 8.3 L POC WB Ioniz Calcium 1.10 L Ionized Calcium Alexis Magnesium GGT AST 44 H Total Protein Albumin Albumin/Globulin Ratio February 24: Blood cultures: Negative so far. HCG neg. CT abd./pelvis: IMPRESSION: Moderate diverticulitis involving the proximal 7 cm of the sigmoid colon. There is a 10 cm region of air in the posterior perisigmoid fat with associated fluid representing either a developing abscess or a contained perforation. Meds: Medications Acetaminophen (Tylenol) 650 mg PO Q6HP PRN PRN Reason: PAIN/FEVER > 101 Docusate Sodium (Colace) 100 mg PO BID PRN PRN Reason: Constipation Folic Acid (Folic Acid) 1 mg PO DAILY [facility] Last Admin: 02/26/17 09:08 Dose: 1 mg Guaifenesin/Codeine Phosphate (Robitussin Ac) 5 ml PO Q4HP PRN PRN Reason: Cough Last Admin: 02/25/17 18:28 Dose: 5 ml Heparin Sodium (Porcine) (Heparin) 5,000 unit SQ Q12 [facility] Last Admin: 02/26/17 09:08 Dose: 5,000 unit Metronidazole (Flagyl) 500 mg in 100 mls @ 100 mls/hr IV Q6H [facility] Last Admin: 02/26/17 05:28 Dose: 100 mls/hr Ciprofloxacin (Cipro) 400 mg in 200 mls @ 200 mls/hr IV Q12H [facility] Last Admin: 02/26/17 10:52 Dose: 200 mls/hr Dextrose/Sodium Chloride (Dextrose 5%-Ns Iv Solution) 1,000 mls @ 100 mls/hr IV .Q10H [facility] Last Admin: 02/26/17 10:51 Dose: 100 mls/hr Iron Carb/Multivit/[place]/Folic Acid (Multivitamin W/Minerals) 1 tab PO DAILY [facility] Last Admin: 02/26/17 09:08 Dose: 1 tab Loratadine (Claritin) 10 mg PO DAILY [facility] Last Admin: 02/26/17 09:08 Dose: 10 mg Lorazepam (Ativan) 0 mg IV Q4HP PRN; Protocol PRN Reason: Alcohol Withdrawal Last Admin: 02/24/17 11:37 Dose: 1 mg Lorazepam (Ativan) 1 mg PO TID [facility] Last Admin: 02/26/17 09:08 Dose: 1 mg Magnesium Hydroxide (Milk Of Magnesia) 30 ml PO DAILYP PRN PRN Reason: Constipation Morphine Sulfate (Morphine) 4 mg IV Q4HP PRN PRN Reason: PAIN LEVEL > 6 Last Admin: 02/24/17 19:30 Dose: 4 mg Naloxone HCl (Narcan) 0.1 mg IV Q2MIN PRN PRN Reason: Opiate Reversal Nicotine (Nicoderm) 21 mg TOPICAL DAILY [facility] Last Admin: 02/26/17 09:10 Dose: 21 mg Ondansetron HCl (Zofran) 4 mg IV Q6HP PRN PRN Reason: Nausea And Vomiting Last Admin: 02/24/17 11:38 Dose: 4 mg Oxycodone/Acetaminophen (Percocet 10-325mg) 1 tab PO Q4HP PRN PRN Reason: PAIN LEVEL 3-6 Last Admin: 02/26/17 03:14 Dose: 1 tab Sertraline HCl (Zoloft) 50 mg PO BID [facility] Last Admin: 02/26/17 09:08 Dose: 50 mg Sodium Chloride (Saline Flush) 10 ml IV Q8 [facility] Last Admin: 02/26/17 05:28 Dose: Not Given Thiamine HCl (Vitamin B1) 100 mg IM DAILY [facility] Last Admin: 02/26/17 09:12 Dose: 100 mg Trazodone HCl (Desyrel) 100 mg PO HS [facility] Last Admin: 02/25/17 20:50 Dose: 100 mg Medical - PN: A/P - Time Spent With Patient Total time spent is greater than 50% in coordination of care (as documented) at patient's floor/unit and/or counseling patient: 15 - 24 minutes (1) History of alcohol abuse Status: Acute Current Visit: Yes (2) Tobacco abuse Status: Acute Current Visit: Yes (3) Diverticulitis of intestine with perforation and abscess Status: Acute Current Visit: Yes - Narrative A/P Narrative: 1. GI/ID -Diverticulitis, perforated with psoas phlegmon -Appreciate surgery input. Plan to continue IV cipro and Flagyl with repeat CT on to assess whether it has coalesced into a drainable abscess, preferably by IR. If she needed surgery, she would need colostomy. There is concern that, given her psychiatric history, she would not cope well with that. -Patient is doing well. Her case was reviewed with Dr. Alexis. We will start her on a clear liquid diet today. Continue as needed morphine for pain, although pain is clearly decreasing. 2.Hx tobacco abuse-offered NicoDerm patch. 3. Hx alcohol abuse It sounds like the patient drinks quite regularly. Cont CIWA. Change scheduled lorazepam to as needed. 4.Code: full. She has a girlfriend she would like to act as POA, see number under social history in H&P. 5. DVT proph: heparin SQ. 6. Hyponatremia--resolved. 7. Depression/anxiety: She seems to be doing well. Continue BuSpar, hydroxyzine, sertraline, as needed lorazepam. Medical - PN: Qual - Stroke Symptom Onset Unknown: No - VTE Deep Vein Thrombosis/Pulmonary Embolism Present on Admission: No
--- NOTE | 2017-02-26 12:29 | General Surgery Progress Note ---
Subjective Patient reports: feels better, pain is less, flatus, bowel movement, afebrile Narrative: Note initiated : 02/26/17 at 12:28 pm Service Date, if different from initiated Date: [] Patient: Merline Rajan 32 y/o F admitted on 02/24/17 for Lower Abd/Low Back Pain/Diverticulitis. patient feels better. She has much less discomfort in her left lower quadrant and flank. She complains of hunger. She has been afebrile. She has had flatus and bowel movements. She denies nausea or vomiting. Her white blood count is normal. Objective Temp Pulse Resp BP Pulse Ox 97.1 F 62 16 119/83 95 02/26/17 11:49 02/26/17 04:00 02/26/17 11:49 02/26/17 11:49 02/26/17 11:49 - Additional Data Intake & Output - Last 24 hours: Intake & Output 02/24/17 02/25/17 02/26/17 02/27/17 05:59 05:59 05:59 05:59 Intake Total 200 / 200 2220 / 2220 2240 / 2240 Output Total 775 / 775 3340 / 3340 Balance 200 / 200 1445 / 1445 -1100 / -1100 Weight 127 lb 128 lb 8 oz 128 lb 8 oz - General physical appearance well developed, well nourished, no distress - Eyes PERRL - ENT no congestion - Neck no venous distension - Respiratory normal expansion, normal respiratory effort, clear to auscultation - Cardiovascular Cardiovascular exam: Present: normal rate and rhythm, RRR, +S1, +S2. Absent: gallop, JVD, systolic murmur, tachycardia - Abdomen soft, tender (Mild tenderness in left lower quadrant but decreased tenderness and left flank and CVA region; good active bowel sounds; no abdominal distention ) - Integumentary no rash, no growths, no abnormal pigmentation - Neurologic normal coordination, other (Much less tremulous than on yesterday) - Musculoskeletal normal gait, normal posture - Psychiatric oriented to time, oriented to person, oriented to place, speech is normal, memory intact - Labs 02/26/17 04:45 02/26/17 04:45 Diabetes panel 02/25/17 02/26/17 Range/Units 16:30 04:45 Sodium 137 136 (133-145) mmol/L Potassium 3.6 (3.3-5.1) mmol/L Chloride 103 (96-108) mmol/L Carbon Dioxide 22 (22-30) mmol/L BUN 2 L (6-20) mg/dl Creatinine 0.6 (0.6-1.1) mg/dl Glucose 115 H (70-105) mg/dL Calcium 7.9 L (8.6-10.4) mg/dl AST 22 (0-37) U/l ALT 12 (0-40) U/l Alkaline Phosphatase 93 (39-117) U/L Total Protein 5.6 L (5.9-8.4) gm/dL Albumin 2.7 L (3.2-5.2) gm/dL Triglycerides 54 (<150) mg/dl Calcium panel 02/26/17 Range/Units 04:45 Calcium 7.9 L (8.6-10.4) mg/dl Phosphorus 3.4 (2.7-4.5) mg/dL Albumin 2.7 L (3.2-5.2) gm/dL Pituitary panel 02/25/17 02/26/17 Range/Units 16:30 04:45 Sodium 137 136 (133-145) mmol/L Potassium 3.6 (3.3-5.1) mmol/L Chloride 103 (96-108) mmol/L Carbon Dioxide 22 (22-30) mmol/L BUN 2 L (6-20) mg/dl Creatinine 0.6 (0.6-1.1) mg/dl Glucose 115 H (70-105) mg/dL Calcium 7.9 L (8.6-10.4) mg/dl Adrenal panel 02/25/17 02/26/17 Range/Units 16:30 04:45 Sodium 137 136 (133-145) mmol/L Potassium 3.6 (3.3-5.1) mmol/L Chloride 103 (96-108) mmol/L Carbon Dioxide 22 (22-30) mmol/L BUN 2 L (6-20) mg/dl Creatinine 0.6 (0.6-1.1) mg/dl Glucose 115 H (70-105) mg/dL Calcium 7.9 L (8.6-10.4) mg/dl Total Bilirubin 0.4 (0.0-1.0) mg/dL AST 22 (0-37) U/l ALT 12 (0-40) U/l Alkaline Phosphatase 93 (39-117) U/L Total Protein 5.6 L (5.9-8.4) gm/dL Albumin 2.7 L (3.2-5.2) gm/dL Assessment and Plan (1) Diverticulitis large intestine Status: Acute Assessment and plan: Patient is clinically improved CT of abdomen and pelvis with IV contrast tomorrow Clear liquid diet Current Visit: Yes (2) Psoas abscess, left Status: Acute Current Visit: Yes (3) Anxiety with depression Status: Acute Assessment and plan: Much improved on present medication regimen Current Visit: Yes (4) Epileptic seizure Status: Acute Current Visit: No (5) Chronic alcoholism Status: Acute Current Visit: Yes (6) Personal history of seizure disorder Status: Acute Current Visit: Yes - Time Spent With Patient Total time spent is greater than 50% in coordination of care (as documented) at patient's floor/unit and/or counseling patient:
[2017-02-26] MEDS: traZODone HCL 50 MG TABLET PO SCH (20:15)
[2017-02-26] MEDS ORDERED: LORazepam 1 MG TABLET ONE (23:46)
[2017-02-27] MEDS: metroNIDAZOLE 500 MG/100 ML BAG IV SCH ×3 (00:11→12:23)
[2017-02-27] MEDS: DEXTROSE 5%-NS 1,000 ML IV SCH ×2 (03:00→08:56)
[2017-02-27] MEDS: 0.9 % SODIUM CHLORIDE 10 ML SYRINGE IV SCH ×2 (05:56→15:11)
[2017-02-27 06:52] LABS: Basophils # (Auto) 0 K/mcL (0.0-0.3); Basophils % (Auto) 0.5 % (0.0-2.0); Eosinophils # (Auto) 0.1 K/mcL (0.0-0.7); Eosinophils % (Auto) 2.4 % (0.0-7.0); Granulocytes % (Auto) 59.7 % (38.0-78.0); Lymphocytes # (Auto) 1.3 K/mcL (1.5-4.8); Mean Cell Volume 102.8 fL (80.0-100.0); Mean Corpuscular HGB Conc 33.5 g/dL (31.0-36.0); Mean Corpuscular Hemoglobin 34.4 pg (26.0-34.0); Monocytes # (Auto) 0.6 K/mcL (0.1-0.9); Monocytes % (Auto) 11.4 % (1.0-12.0); Platelet Count 213 K/mcL (140-440); RBC 3.53 M/mcL (4.00-5.20); Red Cell Distribution Width 13.8 % (11.5-14.5)
[2017-02-27 07:28] LABS: ALT/SGPT 11 U/l (0-40); Albumin 2.8 gm/dL (3.2-5.2); Alkaline Phosphatase 82 U/L (39-117); Bilirubin,Direct < 0.2 mg/dL (0.0-0.3); Blood Urea Nitrogen 2 mg/dl (6-20); Gamma Glutamyl Transpeptidase 210 U/L (5-36); Magnesium 1.9 mg/dL (1.6-2.5); Uric Acid 2.9 mg/dL (2.5-8.0)
[2017-02-27] MEDS ORDERED: IOPAMIDOL 100 ML BOTTLE IJ ONE (09:01)
[2017-02-27] MEDS: CIPROFLOXACIN 400 MG/200 ML BAG IV SCH (09:28)
[2017-02-27] MEDS: SERTRALINE 50 MG TABLET PO SCH (09:31)
[2017-02-27] MEDS: FOLIC ACID 1 MG TABLET PO SCH (09:31)
[2017-02-27] MEDS: MULTIVIT,THER IRON,CA,FA & MIN 1 TABLET PO SCH (09:31)
[2017-02-27] MEDS: LORATADINE 10 MG TABLET PO SCH (09:31)
[2017-02-27] MEDS: THIAMINE 100 MG/ML VIAL IM SCH (09:36)
[2017-02-27] MEDS: HEPARIN 5,000 UNIT/ML VIAL SQ SCH (09:36)
[2017-02-27] MEDS: NICOTINE 21 MG PATCH TOPICAL SCH (09:37)
[2017-02-27] MEDS: LORazepam 1 MG TABLET PO PRN ×2 (09:51→15:17)
--- NOTE | 2017-02-27 14:05 | Discharge Summary ---
Providers - Providers Patient information: Note initiated : 02/27/17 at 2:02 pm Service Date, if different from initiated Date: [] Patient: Merline Rajan 32 y/o F admitted on 02/24/17 for Lower Abd/Low Back Pain/Diverticulitis. Chief Complaint: [] Date of admission: 02/24/17 Discharge date: 02/27/17 Attending physician: Geraldine Michel general surgery Hospitalization Hospital course: 31-year-old female who presented with greater than a 1 week history of pain in her posterior lateral flank and left lower quadrant. She had nausea with vomiting. She also had frequent episodes of diarrhea. She was seen in the emergency room and it was noted that she had diverticulitis with proximal sigmoid inflammation and retroperitoneal perforation with a developing phlegmon. She has been admitted and treated with antibiotic therapy and has shown steady progress. CT of the abdomen and pelvis today shows resolving phlegmon with 2 tiny areas of free gas but no abscess. Patient is much improved. She is stable enough to be discharged home on oral antibiotics and I will follow her up in the office in 2 weeks. Discharge diagnosis: Diverticulitis with perforation Secondary discharge diagnosis: Anxiety with depression Chronic alcoholism Prior history of seizure disorder Reason for admission: Recurrent abdominal pain with nausea vomiting and diarrhea Pertinent studies/significant findings: CT of abdomen and pelvis with contrast on 24 February and 27 February Complications: None Exam Temp Pulse Resp BP Pulse Ox 98.1 F 62 12 118/74 97 02/27/17 12:00 02/27/17 04:00 02/27/17 12:00 02/27/17 12:00 02/27/17 12:00 - General physical appearance well developed, well nourished, no distress - Eyes PERRL, normal ocular movement - ENT normal pinna, normal nares, normal mucosa, no hearing loss, no congestion - Head Head exam IM: Present: atraumatic, normocephalic - Neck no masses, no bruits, trachea midline, no lymphadectomy, no venous distension - Cardiovascular Cardiovascular exam IM: Present: normal rate and rhythm - Respiratory normal expansion, normal respiratory effort, clear to percussion, clear to auscultation - Abdomen Abdomen: Present: soft, tender (Mild tenderness in left lower quadrant and left flank region but no guarding or rebound), bowel sounds Hernia: Present: none - Genitourinary Present: normal external genitalia - Integumentary Present: no rash, no growths, no abnormal pigmentation - Neurologic Present: normal coordination, normal sensation - Musculoskeletal Present: normal gait, normal posture - Psychiatric Present: oriented to time, oriented to person, oriented to place, speech is normal, memory intact Discharge Plan - Patient/Caregiver Discharge Instructions Activity: increase activity as tolerated Diet: Regular Diet Additional Instructions: Office visit on or 11 March Prescriptions: Levofloxacin [Levaquin] 500 mg PO DAILY #14 tab metroNIDAZOLE [Metronidazole] 500 mg PO TID #60 tab - Follow up Plan Follow up with: Porsche Chavez ARNP [Primary Care Provider] - Disposition: Home, Self-Care Prognosis: Good Rehab Potential: Good I certify that the patient requires SNF services.: No Overall status at discharge: patient is not back to baseline Pending Studies Resuscitation Status Full Code Diet Clear Liquid Diet Start FriFeb 26 1220 Docusate Sodium (Colace) 100 mg PO BID PRN PRN Reason: Constipation Last Admin: 02/26/17 20:15 Dose: 100 mg Folic Acid (Folic Acid) 1 mg PO DAILY [facility] Last Admin: 02/27/17 09:31 Dose: 1 mg Admin: 02/26/17 09:08 Dose: 1 mg Admin: 02/25/17 09:15 Dose: 1 mg Admin: 02/24/17 08:44 Dose: 1 mg Guaifenesin/Codeine Phosphate (Robitussin Ac) 5 ml PO Q4HP PRN PRN Reason: Cough Last Admin: 02/25/17 18:28 Dose: 5 ml Heparin Sodium (Porcine) (Heparin) 5,000 unit SQ Q12 [facility] Last Admin: 02/27/17 09:36 Dose: 5,000 unit Admin: 02/26/17 20:42 Dose: 5,000 unit Admin: 02/26/17 09:08 Dose: 5,000 unit Admin: 02/25/17 20:50 Dose: 5,000 unit Admin: 02/25/17 09:16 Dose: 5,000 unit Admin: 02/24/17 19:54 Dose: 5,000 unit Admin: 02/24/17 08:46 Dose: 5,000 unit Metronidazole (Flagyl) 500 mg in 100 mls @ 100 mls/hr IV Q6H [facility] Last Admin: 02/27/17 12:23 Dose: 100 mls/hr Infusion: 02/27/17 06:35 Dose: 100 mls/hr Admin: 02/27/17 05:35 Dose: 100 mls/hr Infusion: 02/27/17 01:11 Dose: 0 mls/hr Admin: 02/27/17 00:11 Dose: 100 mls/hr Infusion: 02/26/17 18:34 Dose: 0 mls/hr Admin: 02/26/17 17:34 Dose: 100 mls/hr Infusion: 02/26/17 13:46 Dose: 100 mls/hr Admin: 02/26/17 12:46 Dose: 100 mls/hr Infusion: 02/26/17 06:28 Dose: 100 mls/hr Admin: 02/26/17 05:28 Dose: 100 mls/hr Infusion: 02/26/17 01:03 Dose: 100 mls/hr Admin: 02/26/17 00:03 Dose: 100 mls/hr Infusion: 02/25/17 18:54 Dose: 100 mls/hr Admin: 02/25/17 17:54 Dose: 100 mls/hr Infusion: 02/25/17 14:47 Dose: 100 mls/hr Admin: 02/25/17 13:47 Dose: 100 mls/hr Infusion: 02/25/17 07:00 Dose: 100 mls/hr Admin: 02/25/17 06:00 Dose: 100 mls/hr Infusion: 02/25/17 01:17 Dose: 100 mls/hr Admin: 02/25/17 00:17 Dose: 100 mls/hr Infusion: 02/24/17 19:03 Dose: 100 mls/hr Admin: 02/24/17 18:03 Dose: 100 mls/hr Infusion: 02/24/17 13:00 Dose: 0 mls/hr Admin: 02/24/17 11:38 Dose: 100 mls/hr Admin: 02/24/17 05:00 Dose: Ciprofloxacin (Cipro) 400 mg in 200 mls @ 200 mls/hr IV Q12H [facility] Last Admin: 02/27/17 09:28 Dose: 200 mls/hr Infusion: 02/26/17 21:20 Dose: 0 mls/hr Admin: 02/26/17 20:15 Dose: 200 mls/hr Infusion: 02/26/17 11:52 Dose: 200 mls/hr Admin: 02/26/17 10:52 Dose: 200 mls/hr Infusion: 02/25/17 21:55 Dose: 200 mls/hr Admin: 02/25/17 20:55 Dose: 200 mls/hr Infusion: 02/25/17 12:48 Dose: 200 mls/hr Admin: 02/25/17 11:48 Dose: 200 mls/hr Infusion: 02/25/17 06:28 Dose: 0 mls/hr Admin: 02/24/17 20:02 Dose: 200 mls/hr Infusion: 02/24/17 14:19 Dose: 200 mls/hr Admin: 02/24/17 13:19 Dose: 200 mls/hr Dextrose/Sodium Chloride (Dextrose 5%-Ns Iv Solution) 1,000 mls @ 100 mls/hr IV .Q10H [facility] Last Admin: 02/27/17 08:56 Dose: Not Given Admin: 02/27/17 03:00 Dose: 100 mls/hr Infusion: 02/27/17 03:00 Dose: 0 mls/hr Admin: 02/26/17 20:43 Dose: Not Given Admin: 02/26/17 10:51 Dose: 100 mls/hr Admin: 02/26/17 04:17 Dose: Infusion: 02/26/17 02:57 Dose: 100 mls/hr Admin: 02/25/17 16:57 Dose: 100 mls/hr Iron Carb/Multivit/[place]/Folic Acid (Multivitamin W/Minerals) 1 tab PO DAILY [facility] Last Admin: 02/27/17 09:31 Dose: 1 tab Admin: 02/26/17 09:08 Dose: 1 tab Admin: 02/25/17 09:15 Dose: 1 tab Admin: 02/24/17 08:44 Dose: 1 tab Loratadine (Claritin) 10 mg PO DAILY [facility] Last Admin: 02/27/17 09:31 Dose: 10 mg Admin: 02/26/17 09:08 Dose: 10 mg Lorazepam (Ativan) 0 mg IV Q4HP PRN; Protocol PRN Reason: Alcohol Withdrawal Last Admin: 02/24/17 11:37 Dose: 1 mg Admin: 02/24/17 08:47 Dose: 1 mg Lorazepam (Ativan) 1 mg PO TIDP PRN PRN Reason: Anxiety Last Admin: 02/27/17 09:51 Dose: 1 mg Morphine Sulfate (Morphine) 4 mg IV Q4HP PRN PRN Reason: PAIN LEVEL > 6 Last Admin: 02/24/17 19:30 Dose: 4 mg Admin: 02/24/17 08:45 Dose: 4 mg Admin: 02/24/17 05:33 Dose: 4 mg Nicotine (Nicoderm) 21 mg TOPICAL DAILY [facility] Last Admin: 02/27/17 09:37 Dose: Not Given Admin: 02/26/17 09:10 Dose: 21 mg Admin: 02/25/17 09:18 Dose: 21 mg Ondansetron HCl (Zofran) 4 mg IV Q6HP PRN PRN Reason: Nausea And Vomiting Last Admin: 02/24/17 11:38 Dose: 4 mg Oxycodone/Acetaminophen (Percocet 10-325mg) 1 tab PO Q4HP PRN PRN Reason: PAIN LEVEL 3-6 Last Admin: 02/26/17 19:35 Dose: 1 tab Admin: 02/26/17 03:14 Dose: 1 tab Admin: 02/25/17 22:14 Dose: 1 tab Admin: 02/25/17 17:54 Dose: 1 tab Sertraline HCl (Zoloft) 50 mg PO BID [facility] Last Admin: 02/27/17 09:31 Dose: 50 mg Admin: 02/26/17 20:15 Dose: 50 mg Admin: 02/26/17 09:08 Dose: 50 mg Admin: 02/25/17 20:50 Dose: 50 mg Admin: 02/25/17 09:15 Dose: 50 mg Admin: 02/24/17 19:54 Dose: 50 mg Sodium Chloride (Saline Flush) 10 ml IV Q8 [facility] Last Admin: 02/27/17 05:56 Dose: Not Given Admin: 02/26/17 20:15 Dose: 10 ml Admin: 02/26/17 14:33 Dose: Not Given Admin: 02/26/17 05:28 Dose: Not Given Admin: 02/25/17 22:11 Dose: Not Given Admin: 02/25/17 16:53 Dose: Not Given Admin: 02/25/17 06:02 Dose: Not Given Admin: 02/25/17 00:20 Dose: Not Given Admin: 02/24/17 15:31 Dose: Not Given Thiamine HCl (Vitamin B1) 100 mg IM DAILY [facility] Last Admin: 02/27/17 09:36 Dose: Not Given Admin: 02/26/17 09:12 Dose: 100 mg Admin: 02/25/17 09:17 Dose: 100 mg Admin: 02/24/17 08:45 Dose: 100 mg Trazodone HCl (Desyrel) 100 mg PO HS [facility] Last Admin: 02/26/17 20:15 Dose: 100 mg Admin: 02/25/17 20:50 Dose: 100 mg Admin: 02/24/17 19:54 Dose: 100 mg Shift Summary 02/27/17 03:58 Shift Summary by Marissa Day Addendum entered by Marissa Day R.N. 02/27/17 04:04: CIWA scores were 4, 4, and 0. Original Note: Pt up ad tabatha in room. Voiding in bathroom, she is on her menses. Has not had a BM while here, gave her a prn Colace last night. She was afraid to push too hard when she was trying to go earlier in the shift so was not able to go. Scheduled Ativan was changed to PRN by Hospitalist. She had a bout of n/v with emesis of about 450 (clear broth colored liquid), she denied need for medication , she thought she just drank too much water and felt better after emesis. Medicated with 1 tab Percocet at start of shift, no other complaints of pain so far. Hopes that the CT she has today shows improvement, she hopes to d/c. IV to left hand infusing D5NS at 100 with intermittent antibiotics. Initialized on 02/27/17 03:58 - END OF NOTE
--- NOTE | 2017-02-27 14:52 | Cat Scan Report ---
CLINICAL INFORMATION: Follow up sigmoid diverticulitis with retrosigmoid phlegmon COMPARISON: 01/30/2015 and 02/24/[address] TECHNIQUE: Following enteric contrast, 80 cc of Isovue-300 were injected intravenously, and 60 seconds later, 0.625 mm helical slices were obtained from the mid heart through the subtrochanteric regions. Following reconstruction, 2.5 mm sagittal, coronal and axial reformatted images were processed and reviewed at bone, lung and soft tissue windows. Five minutes later, 0.625 mm helical slices were obtained from the mid heart through the kidneys and viewed at soft tissue windows.The exam was performed using radiation dose optimization techniques including, but not limited to, automated exposure control, adjustment of the mA and/or kV according to patient size and use of iterative reconstruction technique. FINDINGS: Lung bases show no abnormality - no effusion. The visualized heart is normal. Images through the abdomen show mild fatty change within the liver - as previously seen. No focal hepatic lesions. The gallbladder and bile ducts, both kidneys, adrenal glands, spleen, pancreas and aorta, including aortic branches, are normal in size, configuration and attenuation without focal lesion. Images through the pelvis show anteflexed uterus which is normal in size. The ovaries and urinary bladder are normal. Moderate diverticulitis involving the proximal 7 cm of the sigmoid colon again noted. The extracolonic air and phlegmon, in the retrosigmoid fat has decreased. This now spans approximately 5 cm. No evidence of abscess. Tiny amount of gas seen within Camper's fascia in the left lower quadrant may indicate cellulitis. No osseous abnormality. IMPRESSION: Improving sigmoid diverticulitis. The extracolonic air and phlegmon in the retrosigmoid fat has decreased considerably. No evidence of abscess or bowel Possible cellulitis developing within Camper's fascia of the left lower quadrant. Interpreted and Authenticated by: Peterson Reid 02/27/17
== END 2017-02-27 16:00 | disposition home or self-care (01) | DRG 391 ==
LOC: ED 00:06 → MEDSUR 04:04
PROVIDERS: ADMIT Internal Medicine; ATTEND Internal Medicine